=== PATIENT | male | born 1980 | race Caucasian/White ===

== ENCOUNTER 2020-10-01 15:45 | Observation (INO) | payer MEDICAID, SELFPAY ==
[2020-10-01 15:46] VITALS: BP 146/101; PULSE 72; RESP 17; TEMP 35.7; O2SAT 98; BMI 26.0
--- NOTE | 2020-10-01 15:59 | CT_ITS ---
STUDY: CT ABDOMEN AND PELVIS WITHOUT CONTRAST REASON FOR EXAM: Male, 40 years old. LEFT FLANK PAIN WITH HISTORY OF KIDNEY STONES WITH LITHOTRIPSY AND STENTS RADIATION DOSAGE (If Supplied By Facility): CTDIvol = ( 6.80 ) mGy, DLP = ( 339.87 ) mGycm TECHNIQUE: Transaxial images were obtained from the dome of the diaphragm to the symphysis pubis without oral contrast, and without intravenous contrast. Sagittal and coronal images were reconstructed. Individualized dose optimization techniques were used for this CT. COMPARISON: None. FINDINGS: The visualized lung bases are unremarkable. The visualized portions of the heart are within normal limits. Normal liver. Normal gallbladder and extrahepatic biliary system. Normal spleen. Normal pancreas. Normal bilateral adrenal glands. Multiple nonobstructing stones up to 1.5 cm and a 2 cm cyst are noted in the right kidney. Mobile stones up to 1.4 cm in the left kidney. Left hydronephrosis with an obstructive stone in the proximal left ureter measuring 9 mm. Small hiatal hernia. Normal small intestine. Normal colon. The appendix is visualized and appears normal. Normal abdominal aorta. Normal inferior vena cava. Normal retroperitoneum. Normal urinary bladder. Normal abdominal wall. Normal osseous structures. CT/Abdomen/Pelvis without Cont IMPRESSION: Bilateral renal calculi. Right renal cyst. Left hydronephrosis with an obstructive stone within the proximal left ureter. Small hiatal hernia. Electronically Signed: Glen Ibarra DO at 17:12 EST Tel [phone], Service support ,
[2020-10-01 16:33] LABS: Bacteria 0 SEEN /hpf (None Seen); Mucous, Urine 0 SEEN /hpf (<or=2+); Squamous Epithelial Cells - UA 0 SEEN /hpf (0-5)
[2020-10-01] MEDS: Ondansetron 4 MG/2 ML Vial IV (16:39)
[2020-10-01] MEDS: Ketorolac 15 MG/ML Vial IV (16:40)
[2020-10-01] MEDS: Morphine 4 MG/ML Syringe IV ×2 (16:40→18:30)
[2020-10-01] MEDS: 0.9% Normal Saline 1,000 ML 250 ML IV (16:40)
[2020-10-01 16:44] LABS: Color, Urine Yellow (Yellow); Glucose, Dipstick Normal (Normal); Ketone-Dipstick Negative (Negative); Leukocyte Esterase-Dipstick 25 /ul (Negative); Nitrite-Dipstick Negative (Negative); Occult Blood-Urine 250 /ul (Negative); Protein-Dipstick Negative (Negative); Specific Gravity, Urine 1.005 (1.002-1.030); Urine Bilirubin Dipstick Negative (Negative); Urine Clarity Clear (Clear); Urine Urobilinogen Normal (Normal)
[2020-10-01 17:15] LABS: Red Blood Cells-Urine 0-5 SEEN /hpf (0-5); White Blood Cells 0-5 SEEN /hpf (0-5)
[2020-10-01 17:49] VITALS: BP 128/81; PULSE 85; RESP 16; O2SAT 98
--- NOTE | 2020-10-01 17:50 | ED.DCSUM_ITS ---
- ER Visit Summary Date of Service: 10/01/20 Chief Complaint: Left flank pain History of Present Illness: The patient is a [address] Dewey. His urologist is in [place]. He has a history of recurrent kidney stones that required lithotripsy. He states he has left leg pain that began yesterday. Is a sharp and stated 10 severity. Nothing makes this better or worse. Had nausea without vomiting. No diarrhea. His last bowel was today. No dysuria or frequency. Physical Examination: Vitals: Stable. Afebrile. General: Well-nourished and well-developed. Head: Normocephalic atraumatic. Neck: Supple, no lymphadenopathy. No JVD. Nontender. Cardiovascular: Regular rate and rhythm. No murmurs. Respiratory: No respiratory distress. Clear to auscultation bilaterally. Abdominal: Soft, nontender, nondistended, normal bowel sounds. No guarding, rebound, or peritoneal signs. Back: Nontender. Extremities: Nontender, no edema. Skin: Normal color, no rash. Neurologic: Alert and oriented ?3. Cranial nerves II through XII are intact. Normal strength and sensation. Psych: Normal affect. Test Results: UA shows leukocytes and blood. Micro is negative. Clinical Impression(s) from Imaging Studies Abdomen/Pelvis CT 10/01/20 15:59 IMPRESSION: Bilateral renal calculi. Right renal cyst. Left hydronephrosis with an obstructive stone within the proximal left ureter. Small hiatal hernia. Electronically Signed: Glen Ibarra DO at 17:12 EST Tel [phone], Service support , Emergency Department Course and Treatment: Patient had an IV placed. Is given a liter normal saline. He was given Toradol, morphine, and Zofran IV. He is pain is significantly improved, but not resolved. Treatment Plan: I had a prolonged discussion with the patient that he will not pass the stone on his own. He was discussed with Dr. Sheehan. He will be admitted to hospital for further evaluation and treatment. Disposition: Admitted in stable condition. Impression: 1. Left ureterolithiasis. This note was generated with [employer] software. It may contain incorrect words, spelling, and punctuation that were not noted in review of the chart prior to signing ED Disposition - Plan for ED Patient: Referrals: Sotero Dewey MD [Primary Care Provider] -
[2020-10-01 18:46] VITALS: BP 131/90; PULSE 80; RESP 14; TEMP 37.1; O2SAT 99
[2020-10-01 18:56] VITALS: BMI 26.1
[2020-10-01 19:17] VITALS: BMI 25.6
[2020-10-01 19:24] VITALS: BP 133/89; PULSE 60; RESP 16; TEMP 36.6; O2SAT 96
[2020-10-01] MEDS: 0.9% Normal Saline 1,000 ML 75 ML IV (19:37)
[2020-10-01] MEDS: Cefazolin 1 GM/50 ML BAG IV (20:54)
[2020-10-01] MEDS: Morphine 2 MG/ML Syringe IV (22:31)
[2020-10-02] VITALS (12 sets, daily range): BP systolic 100–152; BP diastolic 60–96; PULSE 49–72; RESP 16–18; TEMP 35.9–36.7; O2SAT 94–100; BMI 25.6
[2020-10-02] MEDS: Ketorolac 15 MG/ML Vial IV (05:51)
[2020-10-02] MEDS: Cefazolin 1 GM/50 ML BAG IV ×2 (05:51→14:10)
--- NOTE | 2020-10-02 05:55 | RAD_ITS ---
STUDY: X-RAY - ABDOMEN/PELVIS REASON FOR EXAM: Male, 40 years old. pre op for lt ureteral stone TECHNIQUE: Single AP view of the abdomen / pelvis. COMPARISON: CT abdomen and pelvis the 10/01/2020. FINDINGS: Normal visualized lung bases. Moderate stool in the colon. Nonspecific bowel gas pattern. Gas is seen to the level the rectum. Limited evaluation for free air on a supine radiograph. Multiple calcified structures project over the bilateral renal shadows compatible with previously seen renal stones. Measuring up to 1.4 cm on the right and 1.5 cm on the left. Again noted there is a 9 mm stone projecting over the topography of the proximal left ureter relatively similar to prior CT scan.. Normal visualized osseous structures. RAD/Abdomen Single View (Portable) IMPRESSION: Multiple calcified structures project over the bilateral renal shadows compatible with previously seen renal stones. Measuring up to 1.4 cm on the right and 1.5 cm on the left. Again noted there is a 9 mm stone projecting over the topography of the proximal left ureter relatively similar to prior CT scan. Moderate stool in the colon. Nonspecific bowel gas pattern. Electronically Signed: Jayjay Tiwari MD at 6:16 EST Tel , Service support ,
--- NOTE | 2020-10-02 06:00 | EKG12_ITS ---
Test Reason : PRE-OP Blood Pressure : / mmHG Vent. Rate : 052 BPM Atrial Rate : 052 BPM P-R Int : 176 ms QRS Dur : 086 ms QT Int : 432 ms P-R-T Axes : 043 053 037 degrees QTc Int : 401 ms Sinus bradycardia with sinus arrhythmia Otherwise normal ECG Confirmed by KANDACE WATTS, JAMES ([id number]), avid editor RENEE ALLEN ([id number]) on 10/03/2020 9:57:27 AM Referred By: YUDELKA Confirmed By:JAMES JERONIMO MD
[2020-10-02] MEDS: Morphine 2 MG/ML Syringe IV ×2 (07:42→12:31)
[2020-10-02] MEDS: 0.9% Normal Saline 1,000 ML 75 ML IV (10:38)
--- NOTE | 2020-10-02 13:06 | NURSING ---
pt transported off unit at this time via bed
--- NOTE | 2020-10-02 14:01 | HP.PCM_ITS ---
Problem List (1) Left ureteral calculus Status: Acute History of Present Illness Date of Admission: 10/02/20 Chief Complaint: Left ureteral calculi The patient is a 40 year old male with a history of recurrent kidney stones presents with obstructing stone in the proximal left ureter and also multiple stones left kidney plan for left ureteroscopy laser left lithotripsy of stones and stent. Past Medical History Allergies No Known Allergies Allergy (Verified 10/01/20 15:46) Home Medications: Ambulatory Orders Medication Instructions Recorded Lisinopril [Zestril] 10 mg PO DAILY 10/01/20 Surgical History: no surgical history Smoking Status: Never smoker Tobacco Use: Non-smoker Review of Systems Constitutional: Denies: Chills, Fever, Weight Change HEENT: Denies: Head Aches, Sinus Congestion, Sinus Drainage Cardiovascular: Denies: Chest Pain, Palpitations Respiratory: Denies: Cough, Shortness of breath at rest, Sputum production Gastrointestinal: Denies: Abdominal Pain, Nausea, Vomiting Genitourinary: Denies: Dysuria Musculoskeletal: Denies: Joint Pain, Joint Tenderness Skin: Denies: Rash, Wounds Neurological: Denies: Numbness, Tingling, Focal weakness Psychiatric: Denies: Anxiety, Depression, Homicidal Ideations, Suicidal Ideations Hematologic/ Lymphatic: Denies: Easy Bruising, Easy Bleeding VTE Information - Inpt Only VTE Present on Admission: No - Physical Exam Vitals/I&O's: Vital Signs Temp Pulse Resp BP Pulse Ox 98.0 F 53 L 16 123/63 H 98 10/02/20 12:39 10/02/20 12:39 10/02/20 12:39 10/02/20 12:39 10/02/20 12:39 Oxygen Delivery Method Room Air Weight: 80.921 kg Body Mass Index (BMI) 25.6 Intake and Output for Last 24 Hours 09/30/20 10/01/20 10/02/20 23:59 23:59 23:59 Intake Total 1050 / 1650 1650 / 1650 Balance 1050 / 1650 1650 / 1650 General: Alert, Oriented x3, Cooperative HEENT: Atraumatic, PERRLA, EOMI, Normocephalic Neck: Supple, No JVD, Negative Carotid Bruits Lungs: Clear to auscultation, Normal air movement Cardiovascular: Regular rate, No murmurs Abdomen: Bowel Sounds Present, Soft, Non Tender Extremities: No edema, Capillary Refill Less than 3 Seconds Skin: No rashes, No breakdown Musculoskeletal: No Tenderness to Palpation of Joints or Extremities Neurological: Cranial nerves II-XII grossly intact Psych/Mental Status: Normal Affect, Appropriate Microbiology Past 72 Hours 10/01/20 18:53 Mucosa - Nose SARS-CoV-2 Antigen (Rapid) - Final Laboratory Results 10/01/20 : Urine Color Yellow, Urine Clarity Clear, Urine pH 7.0, Ur Specific [place] 1.005, Urine Protein Negative, Urine Glucose (UA) Normal, Urine Ketones Negative, Urine Occult Blood 250 H, Urine Nitrite Negative, Urine Bilirubin Negative, Urine Urobilinogen Normal, Ur Leukocyte Esterase 25 H, Urine RBC 0-5 SEEN, Urine WBC 0-5 SEEN, Ur Squamous Epith Cells 0 SEEN, Urine Bacteria 0 SEEN, Urine Mucus 0 SEEN Current Medications Sodium Chloride () 1,000 mls @ 75 mls/hr IV .[id number] PENDING SALE TO [facility] Last Admin: 10/02/20 10:38 Dose: 75 mls/hr Documented by: Cefazolin Sodium () 1 gm in 50 mls @ 100 mls/hr IV Q8 PENDING SALE TO [facility] Last Infusion: 10/02/20 06:28 Dose: Infused Documented by: Ketorolac Tromethamine (Ketorolac 15 Mg/Ml Vial) 15 mg IV Q6H PRN PRN PRN Reason: Pain Score 1-10 Stop: 10/06/20 22:31 Last Admin: 10/02/20 05:51 Dose: 15 mg Documented by: Morphine Sulfate (Morphine 2 Mg/Ml Syringe) 2 mg IV Q4H PRN PRN PRN Reason: Pain Score 6-10 Last Admin: 10/02/20 12:31 Dose: 2 mg Documented by: Ondansetron HCl (Ondansetron 4 Mg/2 Ml Vial) 4 mg IV Q8H PRN PRN PRN Reason: NAUSEA Sodium Chloride (0.9% Saline Lock 10 Ml Syringe) 10 - 40 ml IV UD PRN PRN Reason: SALINE FLUSH Assessment/Plan All Active Problems Left ureteral calculus (Acute) 40-year-old male admitted for kidney stone intractable pain plan for ureteroscopy and laser lithotripsy.
--- NOTE | 2020-10-02 14:06 | PCM.DC.URO ---
Discharge Diet: Light diet - advance as tolerated Discharge Activity: Return to Normal Activity Call your doctor if your incision/area has: Continuous Slow Oozing, Sudden Increased Bleeding, Increased Pain/ Swelling, Increased Redness, Foul Smelling Discharge, Swelling at the incision site Call your doctor if you observe: Fever of 101 or Higher, Uncontrolled pain Suture Line Care: Avoid Pulling/Pushing, Avoid Pinching/Bending Additional Instructions: OKAY TO PULL OUT STENT VIA STRING IN A FEW DAYS PUSH LOTS OF FLUIDS Allergies/Adverse Reactions: Allergies No Known Allergies Allergy (Verified 10/01/20 15:46) Medications to take at Discharge Lisinopril [Zestril] 10 mg PO DAILY 10/01/20 Ciprofloxacin [Cipro] 500 mg PO BID #10 tab 10/02/20 Hydrocodone Bitart/Apap 5-325 [[place] 5MG-325MG] 1 tablet PO Q4H PRN PRN 7 Days #20 tablet 10/02/20 The following prescriptions were given: Ciprofloxacin [Cipro] 500 mg PO BID #10 tab Transmission Status: Pending to [id number] Hydrocodone Bitart/Apap 5-325 [[place] 5MG-325MG] 1 tablet PO Q4H PRN PRN 7 Days #20 tablet PRN Reason: Pain Transmission Status: Received by [id number] Primary Care Physician: Sotero Dewey MD [Primary Care Provider] - Test Results: Test results from this visit will be discussed in further detail at your follow-up appointment, if applicable. Please Follow Up With: Sylvain Sheehan MD - [phone] When: in 2 weeks, please call to make an appointment- OR WITH YOUR UROLOGIST
[2020-10-02] MEDS: Lactated Ringers 1,000 ML 100 ML IV (15:00)
--- NOTE | 2020-10-02 15:04 | PCM.OPRPT ---
Problem List (1) Left ureteral calculus Status: Acute Report of Operation Date of Procedure: 10/02/20 Pre-Operative Diagnosis: Multiple left large renal calculi and one obstructing renal calculi Post-Operative Diagnosis: Same Surgery/Procedure Performed:: Cystoscopy, balloon dilation, left retrograde pyelogram, ureteroscopy and laser of stone in the ureter and multiple stones in the kidney and stent placement. Description of Surgical Findings:: This is a patient who presents to the hospital for treatment for an obstructing left distal ureter calculi. I discussed with the patient how the surgery would be performed and we reviewed the risks and benefits of the surgery. The risk and benefits include the risk of failure to remove the stone completely and that the patient may need multiple procedures. We discussed the risk of an infection, the risk of bleeding. We discussed the very rare risk of serious complicated injury to the ureter. The patient understands that if the stone is not able to be removed safely that we may abort the procedure and place a stent. After full discussion and all questions address with the patient the consent form was signed the side was marked appropriately and the patient was taken back to the operating room for the procedure. The patient was taken back to the operating room. After induction of anesthesia by the anesthesiology team the patient was placed in dorsolithotomy position. The genitals were prepped and draped in usual sterile fashion. I went into the bladder with a 21 [place] rigid cystourethroscope through the urethra. Upon entering the bladder I inspected the trigone the left and right ureteral orifice and the bladder itself. I then cannulated the left ureteral orifice and advanced a 0.038 Glidewire up into the kidney. Then over the Glidewire I advanced a 5 Fr Ureteral catheter and performed a retrograde pyelogram with about 10cc of contrast, to delineate the anatomy and identify the stone location. Then a ureteral balloon dilator was advanced over the wire and the distal ureter was balloon dilated with a 12 Fr x 5cm balloon dilator. After 3 minutes of dilating the ureter the balloon was backloaded off the 0.038 glidewire then the safety wire was left in place. I then placed the left access sheath up the left kidney. It was a 11 Guine[place]/13 [place]ine[place] sheath. I then placed a second 0.038 Guidewire as a working wire and over the working 0.038 guidewire I went in with the flexible 7.5fr ureteroscope. I was able to go inside with the 7.5Fr flexible utereroscope and I pulled out the working guidewire and then through the 7.5 frureteroscope I engage the stone in proximal left ureter with laser lithotripsy using a 270miron laser fiber with energy setting of 6 Hertz and 0.6 J until the stone was lasered into tiny little pieces that should pass on their own. I then went up into the left kidney and found for other large stones and all the stones were then lasered using laser lithotripsy into small fragments. After lasering all the stones the ureter got little bit bloody so I to stop lasering but the majority the stones have been pulverized into small pieces. A retrograde pyelogram was performed with 10cc of contrast and no extravasation of contrast or perforation was identified in the ureter there was some mild irritation of the ureter where the stone was located. I then backed out of the ureter left the wire in place and then over the 0.038 guidewire I placed a double coiled pigtail ureteral stent. The ureteral stent was advanced over the 0.038 guidewire under direct fluoroscopic guidance and direct cystoscopic visual guidance, once the stent was in good position I pulled the wire and the stent coiled in the kidney and bladder in good position. I then drained the patient's bladder and the cystoscope was removed and the patient was taken back to the recovery room in good position. The patient was given discharge instructions to call the office for instructions on when to come to the office to have the stent removed. Type of Anesthesia:: General Drains: STENT 6 X 28CM - Admit VTE Documentation VTE Present on Admission: No VTE Mechan Device Prophylaxis: SCD's
[2020-10-02] MEDS: BENZOCAINE/MENTHOL 1 LOZENGE MUCOUS MEM (18:02)
[2020-10-02] MEDS: HYDROcodone Bitartrate/Apap 5/325 Tablet PO (18:03)
--- NOTE | 2020-10-02 20:12 | NURSING ---
reviewed and agree with documentation by DHEERAJ Hector
== END 2020-10-02 18:32 | disposition home or self-care (01) ==
LOC: ED 16:15 → MS3 19:12
PROVIDERS: Admitting Provider Urology; Emergency Provider Emergency Medicine; PCP Family Medicine; Visit Provider Urology
PROC: 0TJ98ZZ Inspection of Ureter, Via Natural or Artificial Opening Endoscopic (ICD-10-PCS; CPT 52352; principal; 2020-10-02 13:50)
DX: N13.2 Hydronephrosis with renal and ureteral calculous obstruction (principal); Z79.899 Other long term (current) drug therapy; I10 Essential (primary) hypertension
CPT/HCPCS: 00918; 52356; 74018; 74176; 76000; 81001; 87426; 93005; 96361; 96365; 96366; 96375; 96376; 99218; 99285; J7030; J7120; A4216; C1769; C1894; G0378; J2405

== ENCOUNTER → 2020-10-15 09:04 | Outpatient (CLI) | payer MEDICAID, SELFPAY ==
[2020-10-02 12:39] VITALS: BMI 25.6
--- NOTE | 2020-10-15 09:08 | RAD_ITS ---
STUDY: X-RAY - ABDOMEN/PELVIS REASON FOR EXAM: Male, 40 years old. Bilateral kidney stones, recent lithotripsy x1 week ago. TECHNIQUE: Single AP view of the abdomen / pelvis. COMPARISON: Comparison is made with prior study dated 10/02/2020. FINDINGS: Normal visualized lung bases. There is a moderate amount of colonic fecal material. 21.3 cm calculus in the mid upper portion of the right kidney. There is also evidence of a 1.2 cm calculus in the region of the right ureteral pelvic junction. The previously seen calculi in the left kidney have been fragmented and decreased in size. The previously seen calculus overlying the transverse process of the L3 vertebrae on the left side is not seen at this time. Normal soft tissue structures. Normal visualized osseous structures. RAD/Abdomen Single View IMPRESSION: Stable calculi in the right kidney. The previously seen left renal calculi of any fragmented and the previously seen calculus overlying the transverse processes of the L3 vertebrae on the left side is not seen at this time. Electronically Signed: Yosi Cordova MD at 9:57 EST , Service support ,
== END ==
PROVIDERS: PCP Family Medicine; Visit Provider Urology
DX: N20.0 Calculus of kidney (principal); N20.1 Calculus of ureter
CPT/HCPCS: 74018